=== PATIENT | male | born 1955 | race Two or more races ===

== ENCOUNTER 2019-03-23 11:22 | Emergency (ER) | payer MEDICAID ==
[~2019-03-23] VITALS: Ht 162.6 cm; Wt 56.7 kg
[2019-03-23 14:20] VITALS: BP 118/71
== END 2019-03-23 14:20 | disposition home or self-care (01) ==
LOC: ED 11:22
DX: S62.101A Fracture of unspecified carpal bone, right wrist, initial encounter for closed fracture (principal); F17.210 Nicotine dependence, cigarettes, uncomplicated; Z71.6 Tobacco abuse counseling; Z98.890 Other specified postprocedural states; W19.XXXA Unspecified fall, initial encounter; Y93.89 Activity, other specified; Y92.89 Other specified places as the place of occurrence of the external cause; Y99.8 Other external cause status
CPT/HCPCS: 99406